=== PATIENT | female | born 1970 | race Caucasian/White ===

== ENCOUNTER 2016-10-31 05:16 | Inpatient (IN) | payer OTHER ==
[2016-10-29 10:09] LABS: BASOPHILS 0.7 % (0-2); EOSINOPHILS 0.8 % (0-7); HEMATOCRIT 39.6 % (36.0-48.0); HEMOGLOBIN 12.8 g/dL (12-16); IMMATURE GRANULOCYTES 0.3 % (0-5); MCH 27.9 pg (26.0-34.0); MCHC 32.3 g/dL (31.0-37.0); MCV 86.3 fL (80.0-100.0); MEAN PLATELET VOLUME 10.4 fL (7.4-10.4); MONOCYTES 8.6 % (2-11); NEUTROPHILS 67.6 % (40-80); RBC 4.59 10x6/uL (4.00-5.40); RDW 13.6 % (11.5-14.5); WBC 10.2 10x3/uL (4.8-10.8)
[2016-10-29 10:10] LABS: PLATELET COUNT 316 10x3/uL (130-400)
[2016-10-29 10:24] LABS: CALC OSMOLALITY 271 mosm/kg (275-300); CALCIUM 8.4 mg/dL (8.5-10.1); CARBON DIOXIDE 25.5 mmol/L (21.0-32.0); CHLORIDE - SERUM 104 mmol/L (98-107); CREATININE - SERUM 0.8 mg/dL (0.6-1.3); GLUCOSE 83 mg/dL (74-106); POTASSIUM - SERUM 3.8 mmol/L (3.5-5.1); SODIUM 137 mmol/L (136-145); UREA NITROGEN 9 mg/dL (7-18); eGFR NON AFRICAN AMERICAN 81 mL/min (90-120)
[~2016-10-31] VITALS: Ht 157.5 cm; Wt 59.5 kg
[2016-10-31] VITALS (13 sets, daily range): BP systolic 98–136; BP diastolic 53–66; Ht 157.5 cm; Wt 59.5 kg
[~2016-10-31 05:16] MED LIST: KLONOPIN0.5 MG PO; NORTREL PO; ZOLOFT25 MG PO
[2016-10-31 06:11] LABS: HCG URINE NEGATIVE (NEGATIVE)
--- NOTE | 2016-10-31 10:28 | NUR ---
RECEIVED PT FROM VIA BED TO ROOM 1273. BED LOCKED AND PLACED IN LOW POSITION. HRRR. BBS CLEAR. BS X 4-HYPOACTIVE. ABDOMEN SOFT/NON-DISTENDED. ABDOMINAL INCISION WITH STERISTRIPS AND DERMABOND. NO DRAINAGE, REDNESS OR SWELLING NOTED. ICE PACK TO INCISION. NO VAGINAL DISCHARGE NOTED. PERIPAD TO MONITOR. MURPHY TO GRAVITY DRAINING BLUE, YELLOW URINE IN BAG. SCDS ON BLE. PUMP ON. D5LR UP AT 125 ML/HR. SITE CLEAR TO RIGHT WRIST. PT INSTRUCTED ON TCDB AND SURGICAL PILLOW. PT C/O NAUSEA. EMESIS BAG IN PT HAND. COLD, WET CLOTH TO FACE. PT ORIENTED TO ROOM, BED, AND CALL LIGHT. SR UPX 2. CALL LIGHT IN REACH.
--- NOTE | 2016-10-31 10:39 | NUR ---
PT GIVEN PHENERGAN 25 IM TO LGM. PT INSTRUCTED ON MED. VERBALIZES UNDERSTANDING. BANDAID TO SITE. PT CECY WELL.
--- NOTE | 2016-10-31 10:59 | NUR ---
DEMEROL PATIENT CARE SECRETARY STARTED 10 MG/10 MIN PT DEMAND. PT INSTRUCTED ON MED AND USE OF BUTTON. PT DEMONSTRATES UNDERSTANDING.
--- NOTE | 2016-10-31 11:45 | NUR ---
Pt remains turned to her right side, states that nausea is getting better and rates pain at 5/10. When questioned about supervisor throwing department use, she responds that she has not used it yet. Encouraged her to do, to help decrease the pain and allow her rest. Denies any needs at this time. Side rails up x 2 with phone and call light in reach.
--- NOTE | 2016-10-31 12:20 | NUR ---
PT WAS RECEIVED FROM FRANC SQUIRES. REPORT WAS RECEIVED. PT IS LYING IN BED. SHE C/O NAUSEA BUT BELIEVES THE PHENERGAN IS HELPING HER. FAMILY IS AT BEDSIDE. PT IS ASLEEP BUT EASILY AROUSED. GEN- AWAKENED PT TO INTRODUCE MYSELF. LUNGS- CLEAR. HEART- RRR. ABD- SOFT WITH BS ABSENT. TENDER. LOW TRANSVERSE INCISION WITH STERI STRIPS. ICE PACK INTACT. CLEAN AND DRY. MURPHY INTACT AND SECURED TO LEFT THIGH. LIGHT GREEN URINE NOTED. GOOD URINE OUTPUT NOTED. EXT- SCD'S INTACT LE. FEET WARM AND DRY AND PULSES PALPABLE. IV PATENT R WRIST. D5 LR AT 125 CC/HR/ DEMEROL ORE BUYER INFUSING 10 MG Q 10 MIN.
--- NOTE | 2016-10-31 13:18 | NUR ---
PT STATES HER PAIN IS A 6. HER AM TORADOL HAS NOT BEEN GIVEN SO I GAVE IT. HER IS AT BEDSIDE. BED IS LOW. SIDE RAILS UP X 2 AND CALL LIGHT IN REACH.
--- NOTE | 2016-10-31 14:30 | NUR ---
PT IS SLEEPING. FAMILY AT BEDSIDE
--- NOTE | 2016-10-31 14:31 | NUR ---
PT IS SLEEPING. FAMILY AT BEDSIDE. BED IS LOW. SIDE RAILS UP X 2 AND CALL LIGHT IN REACH.
--- NOTE | 2016-10-31 15:02 | NUR ---
STATES THAT SHE IS STILL NAUSEATED. HE WAS THINKING IT MIGHT BE THE DEMERAOL BUT HE STATES SHE HAS ONLY USED THIS A FEW TIMES AND HAS NOT SEEN A RELATION REALLY.
--- NOTE | 2016-10-31 15:30 | NUR ---
PT IS STILL HAVING NAUSEA. ZOFRAN GIVEN VIA IV.
--- NOTE | 2016-10-31 16:22 | NUR ---
PT WAS PULLED UP IN BED AND SITUATED. HER GOWN WAS CHANGED ALSO. PT IS MORE COMFORTABLE.
--- NOTE | 2016-10-31 18:28 | NUR ---
PT IS LYING IN BED. GAVE HER PHENERGAN 25 MG IM FOR NAUSEA. HER IV IS PATENT R WRIST WITH D5 LR INFUSING AT 125 CC/HR. DEMERAL METAL BENCH PATTERNMAKER INTACTR. HAS USED 4 ML'S POST OP. I&O"S MEASURED AND RECORDED. MURPHY INTACT. SCD'S INTACT. BED IS LOW, SIDE RAILS IN REACH AND CALL LIGHT IN REACH. FAMILY AT BEDSIDE.
--- NOTE | 2016-10-31 19:22 | NUR ---
RCVD PT FROM AM SHIFT. PT LYING ON BACK, HOB 20 DEGREES. PT REPORTS HAVING NAUSEA "ALL DAY" AND STATES "I THINK IT'S FROM THE GENERAL ANESTHETIC BECAUSE NOTHING IS HELPING." HR-RRR, PPP, NO EDEMA NOTED TO BLE. SCD'S ON AND FUNCTIONING. PIV TO RT WRIST PATENT WITH D5 LR @ 125ML/HR AND FRONT OFFICE ATTENDANT IN PLACE ALTHOUGH PT REPORTS NO NEED FOR IT EXCEPT TWICE TODAY. BLI C/D/I WITH DRESSING INTACT. MURPHY CATH DRAINING TO GRAVITY WITH 150 ML CLEAR YELLOW URINE IN UROMETER. ENCOURAGE PT TO INCREASE FLUID INTAKE TOLERATED. PT VERBALIZED UNDERSTANDING. PT DEMONSTATES USING I.S. WITH 2000ML PULLED. PT REPORTS REPOSITIONING SELF IN BED "OFTEN" FOR COMFORT. PT DENIES FURTHER NEEDS AT THIS TIME. WILL CONT. TO MONITOR. BED LOW, WHEELS LOCKED, CL IN REACH, SIDE RAILS UP X2.
--- NOTE | 2016-10-31 20:41 | NUR ---
ROUNDS MADE. PT REPORTS RECENT EMESIS. PT REPORTS THAT PHENERGAN DIDN'T HELP MUCH. OFFERED ZOFRAN, PT AGREED. WILL RETURN WITH SAME. PT DENIES ANY FURTHER NEEDS.
--- NOTE | 2016-10-31 21:16 | NUR ---
ZOFRAN 4MG/2ML GIVEN SIVP PER ORDERS. SEE EMAR. LEMON TORRES MARTINEZ SODA WITH ICE PROVIDED TO PT AND BLANKET, PILLOW, AND SHEET PROVIDED FOR FAMILY MEMBER IN ROOM. PT DENIES FURTHER NEEDS CURRENTLY.
--- NOTE | 2016-10-31 22:21 | NUR ---
ROUNDS MADE. PT LYING ON BACK, EYES CLOSED, RESP EVEN & UNLABORED. PT LEFT UNDISTURBED AT THIS TIME.
--- NOTE | 2016-10-31 23:04 | NUR ---
TORADOL 30MG/1ML GIVEN SIVP PER ORDERS. SEE EMAR. PT DRY HEAVING INTO EMESIS BAG. ADV PT CAN GIVE MORE ZOFRAN IN 4 HRS. PT VERBALIZED UNDERSTANDING. ADV PT TO INCREASE INTAKE. POPSICLE PROVIDED. PT DENIES FURTHER NEEDS AT THIS TIME. WILL CONT. POC.
--- NOTE | 2016-10-31 23:38 | NUR ---
PAIN REASSESSMENT COMPLETE. PT SITTING UP AND TEXTING ON CELL PHONE. PT APPEARS MORE CHEERFUL AND REPORTS NAUSEA SEEMS MUCH BETTER AND PAIN HAS DECREASED TO 4/10. PT DENIES ANY NEEDS AT THIS TIME.
[2016-11-01 00:17] VITALS: BP 115/58
--- NOTE | 2016-11-01 00:17 | NUR ---
ROUNDS MADE. PT IN RT TILT. NO C/O NAUSEA AND PAIN RATED 4/10 AT THIS TIME. PUMPS CLEARED. 50ML CLEAR BLUE TINTED URINE EMPTIED FROM UROMETER. CURRENT D5LR INFUSION COMPLETE. OLD BAG DOWN, NEW BAG UP TO PRESENT TUBING. FAMILY REMAINS AT BEDSIDE. WILL CONT. TO MONITOR.
--- NOTE | 2016-11-01 01:50 | NUR ---
PT RESTING, EYES CLOSED, RESP EVEN & UNLABORED. PT REFUSES TO T/C/D STATING "I JUST WANT TO SLEEP RIGHT NOW. I'LL DO IT THE NEXT TIME YOU HAVE TO COME IN HERE."
[2016-11-01 04:43] VITALS: BP 110/59
--- NOTE | 2016-11-01 04:43 | NUR ---
TORADOL 30MG/1ML GIVEN PER ORDERS. SEE EMAR. 250 ML BLUE TINTED URINE EMPTIED FROM UROMETER. PUMPS CLEARED AT THIS TIME. VSS. PT REPOSITIONS SELF TO RT TILT WITH PILLOW SUPPORTING BACK. PT DENIES ANY C/O OR NEEDS.
--- NOTE | 2016-11-01 05:13 | NUR ---
PAIN REASSESSMENT COMPLETE. PT RATES PAIN 05/15. LAB OUT OF ROOM AT THIS TIME. PT DENIES NEEDS. WILL CONT. TO MONITOR.
[2016-11-01 05:52] LABS: HEMATOCRIT 26.1 % (36.0-48.0); MCH 28.7 pg (26.0-34.0); MCHC 34.5 g/dL (31.0-37.0); MCV 83.1 fL (80.0-100.0); MEAN PLATELET VOLUME 10.8 fL (7.4-10.4); RBC 3.14 10x6/uL (4.00-5.40); RDW 13.1 % (11.5-14.5); WBC 14.3 10x3/uL (4.8-10.8)
--- NOTE | 2016-11-01 07:40 | NUR ---
DR WHITE TO PT'S ROOM AT THIS TIME.
--- NOTE | 2016-11-01 07:55 | NUR ---
THIS RN TO BEDSIDE FOR SHIFT ASSESSMENT. PT AA&O X 4. RATES PAIN 2-3/10. WORSENES W/MOVEMENT. PT REPORTS MOVING FREQUENTLY IN BED W/ASSISTANCE FROM SPOUSE. POC DISCUSSED W/PT AND SPOUSE. BOTH ARE AGREEABLE. PT HAS A PIV TO RT HAND W/20GUAGE CATH. LR INFUSING AT 125ML/HR W/DEMEROL TURKEY PICKER IN PLACE. BREATHSOUNDS CL\=, ABD SOFT, NON DISTENDED, LOW TRANSVERSE INCISION W/DERMABOND AND STERISTRIP IN PLACE. INCISION C/D/I. MILD BRUISING NOTED. MURPHY CATH IN PLACE DRAINING VIA GRAVITY AT BEDSIDE. PERIPAD W/SMALL BLEEDING NOTED. SCD WRAPS IN PLACE BILATERALLY. CONNECTED TO PUMP. PUMP IS ON AND FUNCTIONING. PEDAL PULSES PRESENT X 2. NO EDEMA NOTED TO LOWER EXTERMITIES. V/S STABLE. PT DENIES NEEDS AT PRESEN. CURRENTLY EATING A REGULAR DIET. PT DENIES PASSING FLATUS SINCE SURGERY.
[2016-11-01 08:00] VITALS: BP 116/58
--- NOTE | 2016-11-01 08:57 | NUR ---
DR WHITE CALLED FFOR ORDERS FOR PO PAIN MEDICATION. ORDERS REC'D TO ADMIN DEMEROL 50MG PO Q 4 HRS PRN FOR PAIN.
--- NOTE | 2016-11-01 09:06 | NUR ---
TO BEDSIDE FOR PEPCID ADMIN PER MD ORDERS. PT ENCOURGED TO PUSH DISTANCE LEARNING UNIT LEADER BUTTON ONCE MORE NOW IN PREP FOR TRANSFER. PT DOES SO AT THIS TIME. MURPHY CATH DISCONTINUED INTACT W/APPROX 150ML URINE NOTED. CLEAN PERIPAD PLACED AND PT ASSISTED W/PUTTING MESH PANTIES ON. PT REPOSITIONS SELF TO SITTING ON SIDE OF BED. AFTER SEVERAL MINUTES, PT DENIES NAUSEA OR DIZZINESS. IV PUMP STOPPED. IV SITE SALINE LOCKED.
--- NOTE | 2016-11-01 09:17 | NUR ---
DEMEROL TAB 50 MG GIVEN PO. PT TRANSFERS SELF TO W/C. TRANSFERED VIA W/C TO RM 1257. TRANSFERS SELF TO BED. PT AND SPOUSE ORIENTED TO ROOM, CALL LIGHT AND PHONE. FRESH ICE WATER SERVED. PT DENIES FURTHER NEEDS. PT TEACHING PROVIDED IN REGARDS TO AMBULATING IN [place] TWICE DAILY. PT VERBALIZES UNDERSTANDING AND IS AGREEABLE. FAMILY AT BEDSIDE.
--- NOTE | 2016-11-01 10:00 | NUR ---
ROUNDS MADE FOR PAIN REASSESSMENT. PT CURRENTLY SITTING UP IN BED VISITING W/GUESTS. RATES PAIN 2-3. DENIES NEEDING ADDITIONAL PAIN INTERVENTIONS AT THIS TIME. BED LOW, CALL LIGHT AT PT'S SIDE.
--- NOTE | 2016-11-01 11:00 | NUR ---
ROUNDS MADE. PT SITTING UP IN BED AA&O X 4 VISITING W/GUESTS. DENIES NEEDS. REPORTS SHE AND A FAMILY MEMBER ARE GOING TO AMBULATE TO L&D WAITING ROOM FOR HER ORDERED AMBULATION X 2 DAILY.
--- NOTE | 2016-11-01 12:00 | NUR ---
LUNCH TRAY SERVED. PT REPORTS SHE AMBULATED IN N[place] W/OUT DIFFICULTY. DENIES DIZZINESS OR NAUSEA OF ANY KIND. NO NEEDS VOICED AT THIS TIME.
--- NOTE | 2016-11-01 12:51 | NUR ---
THIS RN TO BEDSIDE TO ADMIN TORADOL PER MD ORDERS. PT TOLERATED WELL. IV TUBING CHANGED TO 3TAIL SALINE LOCK. PT CONTINUES TO EAT LUNCH TRAY. DENIES NEEDS AT THIS TIME. REPORTS PAIN 2 AT REST.
--- NOTE | 2016-11-01 14:00 | NUR ---
ROUNDS MADE. PT SITTING UP IN BED WATCHING TV. RATES PAIN 2/10. V/S OBTAINED. SEE FLOWSHEET. PT QUESTIONED IF SHE HAS BEEN UP TO VOID YET. PT REPORTS SHE FELT LIKE SHE MIGHT NEED TO EARLIER, BUT HAS NOT GOTTEN UP YET. PT ENCOURGED TO DO SO NOW. NUNS CAP PLACED OVER COMMODE. PT ONLY ABLE TO VOID APPROX 30ML. URINE REMAINS GREEN COLORED. TEACHING PROVIDED. [facility] MUG FILLED W/550ML OF WATER ONLY SERVED TO PT W/INSTRUCTIONS TO DRINK MUCH POSSIBLE W/OUT MAKE HERSELF NAUSEATED. PT IS AGREEABLE. PT DENIES FURTHER NEEDS AT PRESENT.
--- NOTE | 2016-11-01 15:15 | NUR ---
ROUNDS MADE. PT SITTING UP IN BED VISITING W/GUESTS. RATES PAIN 06/15. PT HAS BEEN ABLE TO DRINK APPROX 250ML OF WATER PROVIDED.
--- NOTE | 2016-11-01 16:45 | NUR ---
ROUNDS MADE. PT REMAINS IN BED AWAKE VISITING W/GUESTS AT BEDSIDE. PAIN AND NEEDS ASSESSED. PT DENIES NEEDS REPORTS PAIN 2/10. REPORTS ABLE TO VOID SMALL AMOUNT. APPROX 30ML OF GREEN TINGED URINE NOTED IN NUNS CAP. PT ENCOURAGED TO CONTINUE DRINKING WATER.
--- NOTE | 2016-11-01 17:10 | NUR ---
DR WHITE ON UNIT. REPORT GIVEN OF PT MIROSLAVANY VOIDING TWICE SINCE MURPHY D/C'D AND ONLY 30ML AT EACH VOID. ORDERS REC'D TO GET HEMOGRAM NOW.
--- NOTE | 2016-11-01 17:25 | NUR ---
LAB CALLED FOR STAT HEMOGRAM DRAW.
--- NOTE | 2016-11-01 17:39 | NUR ---
TO PT BEDSIDE TO INFORM PT OF CONTINUED POC. PT AGREEABLE. REPORTS WAS ABLE TO VOID AGAIN. APPROX 70ML GREEN URINE NOTED. PT CURRENTLY SITTING UP IN BED EATING DINNER TRAY.
[2016-11-01 18:20] LABS: HEMOGLOBIN 8.4 g/dL (12-16); MCH 28.2 pg (26.0-34.0); MCHC 33.6 g/dL (31.0-37.0); MCV 83.9 fL (80.0-100.0); MEAN PLATELET VOLUME 10.2 fL (7.4-10.4); RBC 2.98 10x6/uL (4.00-5.40); RDW 13.2 % (11.5-14.5); WBC 14.1 10x3/uL (4.8-10.8)
--- NOTE | 2016-11-01 18:29 | NUR ---
DR WHITE CALLED TO GIVE REPORT OF PT'S MOST RECENT HEMOGLOBIN. ORDERS REC'D TO MONITOR PT'S URINE OUTPUT HOURLY. IF URINE OUTPUT IS LESS THAN 30ML HOURLY. DR WHITE TO BE CALLED FOR FURTHER ORDERS.
--- NOTE | 2016-11-01 19:18 | NUR ---
RCVD PT FROM Stacy MARTINEZ RN. PT LYING ON BACK IN LOW [place] POSITION. PT AAOX4. PT RATES CURRENT PAIN 4/10 AND WORSENS WITH MOVEMENT. VSS, HR-RRR, PPP, BREATH SOUNDS CLEAR AND UNLABORED X2. BOWEL SOUNDS ACTIVE X4. PIV SL TO RT WRIST, FLUSHES WELL WITH NO ERYTHEMA OR EDEMA NOTED TO SITE. LOW TRANSVERSE INCISION C/D/I WITH DERMABOND AND STERISTRIPS. MILD BRUISING NOTED AROUND SITE. PT REPORTS VOIDING AND LEAVING [place] IN BATHROOM. 40-50 ML BLUE TINTED URINE NOTED IN [place]. ADV PT TO FINISH WATER IN CUP AND THE GOAL IS TO GET AT LEAST 4 CUPS OF WATER IN DURING SHIFT. PT VERBALIZED UNDERSTANDING AND IS AGREEABLE. BLANKET AND PILLOW PROVIDED TO SPOUSE FOR BEDSIDE COUCH. PT DENIES ANY NEEDS AT THIS TIME. BED LOW, WHEELS LOCKED, CL IN REACH, SIDE RAILS UP X2.
--- NOTE | 2016-11-01 19:27 | NUR ---
TORADOL 30MG/1ML GIVEN FOR PAIN RATED 4/10. SEE EMAR. PT DENIES FURTHER NEEDS AT THIS TIME. WILL CONT. TO MONITOR.
--- NOTE | 2016-11-01 20:01 | NUR ---
PAIN REASSESSMENT COMPLETE. PT RATES PAIN 2/10 CURRENTLY AND TOLERABLE. PT DENIES ANY FURTHER NEEDS CURRENTLY AND DENIES NEED TO VOID. ADV PT TO MAKE SURE TO MEASURE URINE AND LEAVE IT FOR ME TO SEE WHEN SHE VOIDS. PT VERBALIZED UNDERSTANDING. WILL CONT. TO MONITOR.
--- NOTE | 2016-11-01 21:14 | NUR ---
PT AMB DOWN NINO TO DOOR ON UNIT AND BACK TO ROOM. STEADY GAIT NOTED AND AMB WITHOUT DIFFICULTY. PT DENIES NEED FOR PAIN MEDICATIONS AT THIS TIME. PEPCID GIVEN PER ORDERS. SEE EMAR. PT DENIES FURTHER NEEDS. WILL CONT. TO MONITOR. BED LOW, WHEELS LOCKED, CL IN REACH, SIDE RAILS UP X2.
--- NOTE | 2016-11-01 22:04 | NUR ---
ROUNDS MADE. PT SLEEPING, BUT AROUSES WITH LIGHT VERBAL STIMULI. SPOUSE SLEEPING ON BEDSIDE COUCH. PT REPORTS VOIDING AROUND 2130. 110ML GREEN TINTED URINE NOTED IN [place]. PT DENIES PAIN OR NEEDS. ENCOURAGED TO DRINK MORE FLUIDS. PT DENIES NEEDS FOR ANYTHING BUT WATER. WILL CONT. TO MONITOR.
[2016-11-02 00:22] VITALS: BP 113/70
--- NOTE | 2016-11-02 00:22 | NUR ---
ROUNDS MADE. PT WAKES UPON THIS RN ENTERING ROOM. PT DENIES PAIN AT THIS TIME. VSS. PT DENIES GETTING UP TO VOID STATING "I'VE JUST BEEN SLEEPING." ADV PT TO MEASURE VOID AND TO LEAVE FOR RN TO SEE. PT VERBALIZED UNDERSTANDING AND DENIES NEEDS AT THIS TIME.
--- NOTE | 2016-11-02 02:40 | NUR ---
rounds made. pt lying on back, hob 30 degrees, resting with eyes closed, resp even & unlabored. pt left undisturbed at this time.
[2016-11-02 04:04] VITALS: BP 117/73
--- NOTE | 2016-11-02 04:04 | NUR ---
ROUNDS MADE. PT LYING ON BACK, HOB 30 DEGREES AND AWAKENS TO LIGHT VERBAL STIMULI. VSS. PT REPORTS VOIDING IN [place]AT, 210ML OF CLEAR GREEN URINE NOTED. FIRST VOID SINCE 2129 WHICH MAKES 30 ML AN HR. PT STATES "I USUALLY ONLY DRINK ABOUT 1 20 OZ BOTTLE OF WATER A DAY AND USUALLY DON'T PEE MUCH." PT DENIES PAIN OR NEEDS AT THIS TIME. SPOUSE REMAINS ON BEDSIDE COUCH.
[2016-11-02 08:17] VITALS: BP 120/77
[2016-11-02] MEDS ORDERED: IBUPROFEN600 MG PO (08:38)
[2016-11-02] MEDS ORDERED: MEPERIDINE HCL50 MG PO (08:38)
--- NOTE | 2016-11-02 09:50 | NUR ---
DC'D VIA WHEELCHAIR AFTER GIVING VERBAL AND WRITTEN DC INSTRUCTIONS INCLUDING POST OP CARE, S&S INFECTION, MEDICATION ADMINISTRATION, ANEMIA, TREATMENT FOR ANEMIA INCLUDING DIET, IRON 325MG PO BID AND MULTI-VITAMIN PER DR WHITE. WRITTEN PRESCRIPTIONS GIVEN ALONG WITH COMMUNITY RESOURCES. APPOINTMENT CARD GIVEN WITH SCHEDULED APPOINTMENT TIME AND DATE. QUESTIONS ANSWERED. FAMILY PRESENT TO DRIVE PATIENT HOME.
== END 2016-11-02 09:50 | disposition home or self-care (01) | DRG 743 ==
LOC: D.OPS 05:16 → D.PAN 07:30 → D.OPS 07:30 → D.LD 10:02 → D.OPS 10:03 → D.LD 10:03
PROVIDERS: ADMIT Obstetrics & Gynecology
PROC: 0UT20ZZ Resection of Bilateral Ovaries, Open Approach (ICD-10-PCS; 2016-10-31)
PROC: 0UT70ZZ Resection of Bilateral Fallopian Tubes, Open Approach (ICD-10-PCS; 2016-10-31)
PROC: 0UT90ZZ Resection of Uterus, Open Approach (ICD-10-PCS; principal; 2016-10-31 07:30)
PROC: 0UTC0ZZ Resection of Cervix, Open Approach (ICD-10-PCS; 2016-10-31 07:30)
DX: N94.6 Dysmenorrhea, unspecified (principal); D25.9 Leiomyoma of uterus, unspecified; N80.8 Other endometriosis

== ENCOUNTER → 2018-02-28 13:30 | Outpatient (CLI) | payer OTHER ==
[2016-10-31 13:59] VITALS: BMI 24.0
[~2018-02-28 13:30] MED LIST changes: +IBUPROFEN600 MG PO; +MEPERIDINE HCL50 MG PO
== END | disposition home or self-care (01) ==
LOC: D.MAMMO 13:30
DX: Z12.31 Encounter for screening mammogram for malignant neoplasm of breast (principal)